=== PATIENT | male | born 1975 | race Caucasian/White ===

== ENCOUNTER 2019-01-22 14:05 | Outpatient (CLI) | payer OTHER ==
[2019-01-22 15:39] VITALS: BP 116/73
[2019-01-22] MEDS ORDERED: TRAMADOL HCL50 MG ORAL (15:39)
--- NOTE | 2019-01-22 20:45 | Consultation ---
DATE OF CONSULTATION: 01/22/2019 CHIEF COMPLAINT: Abdominal pain and bloating. HISTORY OF PRESENT ILLNESS: This is a 43-year-old male with human immunodeficiency virus positive, history of chronic abdominal pain for long time, and bloating gas. Apparently, he has had a lot of procedures done in a different country. In [place], he had an endoscopy done. He was told to have H. pylori positive. He was treated for it. He had a colonoscopy without any findings. He was diagnosed with IBS and GERD. He is here because he said nothing is working. He is still having bloating gas. PAST MEDICAL HISTORY: As above. PAST SURGICAL HISTORY: None. MEDICATIONS: Truvada. ALLERGIES: No known drug allergies. FAMILY HISTORY: Grandmother had breast cancer. SOCIAL HISTORY: The patient drinks socially. Denies any tobacco usage. He admits to occasionally using drugs. PHYSICAL EXAMINATION: VITAL SIGNS: Temperature 98.7, blood pressure is 116/73, pulse is 86, and respirations 20. HEENT: Normocephalic and atraumatic. Sclerae anicteric. NECK: Supple. No obvious evidence of lymphadenopathy. CARDIOVASCULAR: Regular rate and rhythm. Plus S1 and S2. LUNGS: Clear to auscultation bilaterally. ABDOMEN: Positive bowel sounds. Soft and nontender. No rebound. No guarding. No peritoneal sign. EXTREMITIES: No cyanosis. No clubbing. No edema. ASSESSMENT AND PLAN: Sign and symptoms suggestive of SIBO, small intestinal bacterial overgrowth. Given the patient , when he was treated for H. pylori, he felt better. He says nothing else is working. He is taking a lot of gas pills without any improvement. He had history of parasite infection, which has been treated. At this time, he does not have diarrhea. Our plan will be to treat him with Xifaxan 550 mg t.i.d. for 14 days and having followup after dissection is completed to re-evaluate him at that time. Roverto Pablo M.D. DR: LISANDRO JOB#: [id number] CC:
== END 2019-01-22 16:05 | disposition home or self-care (01) ==
LOC: PAN 14:05
DX: R10.9 Unspecified abdominal pain (principal); R14.0 Abdominal distension (gaseous); B20 Human immunodeficiency virus [HIV] disease; K21.9 Gastro-esophageal reflux disease without esophagitis; K58.9 Irritable bowel syndrome, unspecified
CPT/HCPCS: 99202